=== PATIENT | female | born 1990 | race Caucasian/White ===

== ENCOUNTER 2016-09-08 09:43 | Emergency (ER) | payer OTHER ==
[~2016-09-08] VITALS: Ht 175.3 cm; Wt 66.4 kg
[~2016-09-08 09:43] MED LIST: DOCU-41 PO; IBUP-1827 PO; OXYC1TAB24 PO
[2016-09-08 09:56] VITALS: BP 114/69; PULSE 87; RESP 15; O2SAT 99
--- NOTE | 2016-09-08 10:08 | ED.REPORT ---
HPI-Rash / Abscess Date of Service Sep 08, 2016 ED Provider: Joaquín Loera MD 26 y/o female with no pertient hx presents to the ED complaining of left eyelid swelling that she woke up with 2 days ago. The pt was prescribed cephalexin and sulfamethoxazole at [facility] urgent care on the same day. Her sx have not improved despite being compliant with the medications. She reports itching around the eye and pain with palpation. She denies pain with eye movement. The pt also complains of a lump in her right armpit. She denies fever. She also denies being exposed to anyone who may have had MRSA. Nursing Notes Stated Complaint: LT EYE SWELLING Chief Complaint: Skin Rash/Abscess Nursing Notes Reviewed: Yes ([email or web address], [employer] not reconciled) Allergies: Coded Allergies: No Known Allergies (Verified Allergy, Unknown, 10/05/14) Scheduled Clindamycin (Clindamycin) 300 Mg Capsule 300 MG PO QID Docusate Sodium (Colace) 100 Mg Capsule 100 MG PO BID Lactobacillus Acidophilus (Probiotic) 1 Each Capsule 1 EACH PO DAILY Scheduled PRN Hydrocodone-Acetaminophen 5-325 mg (Hydrocodone-Acetaminophen 5-325 mg) 1 Each Tablet 1-2 TABLET PO TID PRN PRN For Pain Ibuprofen (Ibuprofen) 600 Mg Tablet 600 MG PO Q6H PRN PRN For Pain oxyCODONE-Acetaminophen 5-325 mg (oxyCODONE-Acetaminophen 5-325 mg) 1 Tab Tablet 1-2 TAB PO Q4H PRN PRN For Pain General Time Seen by MD: 10:06 Chief Complaint Tender/swollen area (left eyelid) Hx Obtained From: Patient Arrived By: Walk-in Onset Occurred: 2 days ago Symptom Duration: Since onset Location: : Head/face (left eye) Quality: Itching, Painful (sore) Severity: Current: Mild Severity: Maximum: Mild Recent Healthcare: Recent doctor visit Similar Sx Previous: No Past Medical History Past Medical History Past Surgical History Reports: Family History non-contributory Smoking History Former Smoker Social History Other Social History: Good social support Ambulatory Status Independent Review of Systems Reports: left eye swelling Reports: left eye itching and pain with palpation Denies: left eye pain with eye movement Reports: lump in right armpit Constitutional: Denies: Fever Complete sys rev & neg: except as marked. Physical Exam Initial Vital Signs Vital Signs (First) Date Time Temp Pulse Resp B/P Pulse Ox O2 Delivery O2 Flow Rate FiO2 09/08/16 09:56 37 87 15 114/69 99 Room Air Initial VS: Reviewed, Vital signs normal Head / Eyes: Atraumatic, Normocephalic Neck: Supple, Non-tender, Full range of motion Respiratory: Breath sounds normal, Clear to auscultation, No respiratory distress Cardiovascular: Regular rate & rhythm, Heart sounds normal, Intact distal pulses Abdomen / GI: Soft, Non-tender Extremities: Vascular intact, Neuro intact, No swelling, No tenderness Neurologic: Alert, Oriented, Nonfocal General/Constitutional: Awake, Alert, Not toxic appearing Skin: Atraumatic, Color NL, Warm, Dry Head / Eyes: Atraumatic, Normocephalic Eyelids: Positive: Ptosis L Swelling and erythema on the left eye. Marked erythema under the left eyebrow. No signs of preseptal abscess or tk orbital cellulitis. Upper Extremity / MS: Atraumatic, Full range of motion, No erythema, No deformity, Neurologic intact, Vascular intact Lump without erythema on the right axilla. Interpretation & Diagnostics Lab Results Interpretation Result Diagram: 09/08/16 1100 09/08/16 1100 Test 09/08/16 11:00 White Blood Count 11.4th/mm3 (3.8-10.1) Red Blood Count 4.50mil/mm3 (3.90-5.20) Hemoglobin 12.6g/dL (12.0-15.6) Hematocrit 38.1% (35.0-46.0) Mean Corpuscular Volume 84.7fL (81-100) Mean Corpuscular Hemoglobin 28.0pg (27.0-35.0) Mean Corpuscular Hemoglobin Concent 33.1% (32.0-37.0) Red Cell Distribution Width 14.1% (12.3-15.4) Platelet Count 361bil/L (150-400) Neutrophils (%) (Auto) 75.5% (40-74) Lymphocytes (%) (Auto) 17.2% (14-46) Monocytes (%) (Auto) 5.8% (4-12) Eosinophils (%) (Auto) 0.8% (0-5) Basophils (%) (Auto) 0.3% (0-3) Sodium Level 139mEq/L (134-144) Potassium Level 4.1mEq/L (3.5-5.2) Chloride Level 103mEq/L (97-108) Carbon Dioxide Level 21mmol/L (18-29) Blood Urea Nitrogen 11mg/dL (6-20) Creatinine 0.81mg/dL (0.57-1.00) Estimat Glomerular Filtration Rate 124mL/min (>59) Glucose Level 77mg/dL (60-99) Calcium Level 8.9mg/dL (8.5-10.1) Total Bilirubin 0.2mg/dL (0.0-1.2) Aspartate Amino Transf (AST/SGOT) 16U/L (0-50) Alanine Aminotransferase (ALT/SGPT) 9U/L (0-32) Alkaline Phosphatase 50U/L (25-150) Total Protein 7.2g/dL (6.4-8.4) Albumin 3.8g/dL (3.4-5.0) Human Chorionic Gonadotropin, Qual Negative (Negative) Procedures Incision & Drainage Abscess I & D Abscess: Attempted to aspirate the abscess with 16 gauge and got a little bit of material, so an incision was made. Sebaceous material vs pus materal, difficult to tell. Underlying inflammed lymph node. Time: 11:22 Procedure Performed by: ED physician Consent / Setup / Site Prep: Consent from patient, Time-out performed, Hand hygiene observed, Stand sterile technique, Standard surgical scrub, Sterile drapes applied Location of Abscess: Right axilla Skin Preparation Agent: Normal saline Local Anesthesia: Bupivacaine 0.5% (with epi) Incised Abscess with Scalpel: #11 Pus Drained: Small Irrigation: Yes Post-Procedure / Complications: Culture obtained, Dressing applied, No complications, Condition improved, Tolerated procedure well, Patient stable Re-Eval/Medical Decision Med Decision/Clinical Course This is a 26-year-old female presents with increasing swelling and pain particularly around the left eye, but also lump in the right axilla. She denies fevers or chills. She denies prior history of MRSA or skin infections, this developed a few days ago and she was seen at urgent care and started in Anaprox-it turns out that she initially said one antibiotic, the notes from urgent care indicates she started both cephalexin and trimethoprim sulfa, and she claims she has been compliant. She was told his symptoms are not improving after 2 days to come to the emergency department, they are not improving, her pain is worsened, and her swelling is somewhat worsened. No visual symptoms, or pain with movement of the eye. But on exam has a clear cellulitis mostly with swelling of around the left eyebrow, I cannot tell an clinical exam that might be of fluid collection but there is no tk fluctuance of immediate abscess. And an ultrasound was obtained and did not reveal discrete fluid collection the be amenable to incision and drainage. She had no other areas of overt cellulitis or clear infection, but has a lump in the right axilla that is not cellulitic, but is slightly fluctuant and might be a cyst versus abscess. Lymph node is also possible. An ultrasound there did reveal a small fluid collection, so this area was incised with a small amount of purulent versus sebaceous cyst material. An overt sebaceous cyst wall was not identified however. A culture was sent from that site. In the meantime since the patient is not responding 2 days of antibiotic's, the patient's evening dose of IV clindamycin and dexamethasone. We will switch over to clindamycin 4 times a day for 10 days, as added a probiotic, and severe and pain medicine. Once again the patient's advised throughout 36-48 hours Before expecting much improvement, but if there is worsening symptoms in the interim, or symptoms not responding it have been return to the emergency department again. Source of Hx: Old records Re-Evaluation/Progress #1: Time of Eval: 10:58 Re-Evaluation/Progress Note: Rechecked pt. Informed the pt of the need for an ultrasound of the eye and plan to drain the abscess in the right axilla. She understands and agrees. All questions answered. Re-Evaluation/Progress #2: Time of Eval: 12:12 Re-Evaluation/Progress Note: Rechecked pt. Discussed lab results, imaging results, diagnosis and plan to discharge. Pt understands and agrees with the plan. F/U instruction and RTER warning given. All questions addressed. Differential Diagnosis: Positive: Abscess, Cellulitis Counseled Regarding: Diagnosis, Lab results, Need for follow-up, When/why to return to ED Discharge & Departure Impression: Primary Impression: Facial cellulitis Additional Impression: Abscess of right axilla Disposition: Home Discharge Condition All VS Reviewed: Yes Condition: Stable Additional Instructions: 1. No abscess collection was appreciated on ultrasound of the swelling around the left eye. You do have a skin infection (cellulitis). 2. You did have some fluid in the right axilla, so it was incised. A culture has been sent that will take several days for results. You can call us at [phone] for results (we call you only if it requires a change in antibiotics) 3. Stop the antibiotics you were started on at the [facility] center and change to clindamycin 300mg four times a day. 4. I recommend taking a probiotic daily while on the antibiotic for an additional 2 weeks after finishing the antibiotics. 5. For pain continue ibuprofen 400-800mg three times a day for pain. 6. If needed for more severe pain take hydrocodone/APAP 5/325 1-2 tabs up to 3 times a day for pain. NOTE: This medication contains narcotic and causes drowsiness, no driving for at least 4-6 hours after taking. Use sparingly, and only if needed for more severe pain. 7. Intrinsics are expected to be improving within 36-48 hours of switching to this antibiotic. If you are not improving, or if you are having new or worsening symptoms, return again to the emergency department. 8. If you need a primary care physician, you can follow-up with Dr. Calle at [facility]. Referrals: Julio Hidalgo MD (PCP) Scribe Attestation Portions of this note were transcribed by Zaira You. I,, personally performed the history, physical exam and medical decision-making;I reviewed and confirmed the accuracy of the information in the transcribed note. Signed by Jacob Carmona. 09/08/16 copies to: Julio Hidalgo MD, Matthew F MD Sep 08, 2016 10:08 Zaira You Sep 08, 2016 10:19
[2016-09-08] MEDS ORDERED: HYDROmorphone 0.5 mg/0.5 mL iSecure Syringe IVPUSH PRN (10:25)
[2016-09-08] MEDS ORDERED: Ondansetron 2 mg/mL 2 mL Inj IVPUSH ONE (10:25)
[2016-09-08] MEDS ORDERED: Dexamethasone Inj 10 MG in 0.9% Sodium Chloride-Pha MIX 50 ML IV ONE (11:10)
[2016-09-08] MEDS ORDERED: Clindamycin Inj 900 MG in IV Premix 1 EACH IV ONE (11:10)
[2016-09-08 11:15] LABS: BASOPHILS % (AUTO) 0.3 % (0-3); EOSINOPHILS % (AUTO) 0.8 % (0-5); MONOCYTES % (AUTO) 5.8 % (4-12); Mean Corpuscular Volume 84.7 fL (81-100); NEUTROPHILS % (AUTO) 75.5 % (40-74); Platelet Count 361 bil/L (150-400)
[2016-09-08] MEDS ORDERED: LACT1CAP65 PO (12:10)
[2016-09-08] MEDS ORDERED: CLIN-78 PO (12:10)
[2016-09-08] MEDS ORDERED: HYDR-4003 PO (12:10)
[2016-09-08 12:54] VITALS: BP 128/65; PULSE 75; RESP 16; O2SAT 97
--- NOTE | 2016-09-08 16:58 | DRSVH ---
PROCEDURE: US EXTREMITY SONOGRAM LIMITED ([id number]) INDICATIONS: L eye, R axilla - ? FLUID/SWELLING TECHNIQUE: Real-time scanning was performed of the left eyelid and right axilla, with image document ation. COMPARISON: None. FINDINGS: Sonographic evaluation of the left eyelid demonstrates a 2.4 x 1.2 x 8.6 cm hypoechoic, irregular dina id appearing soft tissue focus with mild internal vascularity. Sonographic evaluation of the right axilla demonstrates a 1.2 x 1.1 x 0.5 cm soft tissue hypoechoic f ocus with mild internal vascularity. IMPRESSION: 1. No drainable fluid collection is visualized. The hypoechoic soft tissue foci visualized may repre sent a phlegmon. Recommend clinical correlation. Dictated by: Sarkis EVANS Interpreted: Kennedy Holden MD on 09/08/2016 at 16:13 Approved by: Kennedy Holden M.D. on 09/08/2016 at 16:55
== END 2016-09-08 13:01 | disposition home or self-care (01) ==
LOC: SED 09:43
DX: L03.211 Cellulitis of face (principal); L02.411 Cutaneous abscess of right axilla; Z87.891 Personal history of nicotine dependence
CPT/HCPCS: 10060; 36415; 76882; 80053; 84703; 85025; 87070; 87075; 87186; 87205; 96365; 96375; 99285; J1100; J1170; J1885; J2405; J3490

== ENCOUNTER 2016-09-10 13:34 | Emergency (ER) | payer OTHER ==
[~2016-09-10] VITALS: Ht 175.3 cm; Wt 65.9 kg
[~2016-09-10 13:34] MED LIST changes: +CLIN-78 PO; +HYDR-4003 PO; +LACT1CAP65 PO
[2016-09-10 13:53] VITALS: BP 105/65; PULSE 84; RESP 16; O2SAT 100
[2016-09-10 15:13] LABS: Mean Corpuscular Volume 86.3 fL (81-100)
[2016-09-10 15:14] LABS: BASOPHILS % (AUTO) 0.8 % (0-3); MONOCYTES % (AUTO) 8.5 % (4-12); Mean Corpuscular Hemoglobin 27.8 pg (27.0-35.0); NEUTROPHILS % (AUTO) 63.5 % (40-74); Platelet Count 404 bil/L (150-400)
[2016-09-10] MEDS ORDERED: Clindamycin Inj 900 MG in IV Premix 1 EACH IV ONE (16:55)
[2016-09-10 17:56] VITALS: BP 117/69; PULSE 74; RESP 16; O2SAT 99
--- NOTE | 2016-09-10 18:09 | ED.REPORT ---
HPI-Rash / Abscess Date of Service Sep 10, 2016 ED Provider: Ronn Segovia PA-C Melissa is an otherwise healthy 26-year-old female presented with the chief complaint of left eye swelling. The approximate 4 days ago. At that time she was seen at urgent care and prescribed Bactrim and Keflex. Swelling continued to advance and she was seen 2 days later here in this department. Treated with IV clindamycin and discharged with oral clindamycin. Ultrasound at that time revealed no drainable abscess. At presentation today she reports reduce swelling around her eye but a enlarging of the lump on her left eyebrow as well as pain and tenderness. Denies fever, shaking chills, abdominal pain, vomiting , changes in vision or pain with eye motion. Nursing Notes Stated Complaint: LEFT EYE SWELLING Chief Complaint: Eye Nursing Notes Reviewed: Yes Allergies: Coded Allergies: No Known Allergies (Verified Allergy, Unknown, 10/05/14) Scheduled Clindamycin (Clindamycin) 300 Mg Capsule 300 MG PO QID Docusate Sodium (Colace) 100 Mg Capsule 100 MG PO BID Lactobacillus Acidophilus (Probiotic) 1 Each Capsule 1 EACH PO DAILY Scheduled PRN Hydrocodone-Acetaminophen 5-325 mg (Hydrocodone-Acetaminophen 5-325 mg) 1 Each Tablet 1-2 TABLET PO TID PRN PRN For Pain Ibuprofen (Ibuprofen) 600 Mg Tablet 600 MG PO Q6H PRN PRN For Pain oxyCODONE-Acetaminophen 5-325 mg (oxyCODONE-Acetaminophen 5-325 mg) 1 Tab Tablet 1-2 TAB PO Q4H PRN PRN For Pain General Time Seen by MD: 15:40 Chief Complaint Tender/swollen area Past Medical History Past Medical History Past Surgical History Reports: Family History non-contributory Smoking History Former Smoker Social History Other Social History: Good social support Ambulatory Status Independent Review of Systems Negative unless stated otherwise in history of present illness Physical Exam General: Well appearing, well developed, well nourished, no acute distress. Head: Atraumatic, normocephalic. Eyes: No scleral icterus or injection. No discharge. Vision grossly intact. EOMI, PERRL. ENT: Voice clear, hearing grossly intact. Respiratory: Regular rate and rhythm. Breath sounds present, clear to auscultation and equal bilaterally. No respiratory distress. No increased work of breathing, speaks in complete sentences. Cardiovascular: Regular rate and rhythm, without murmur, gallop or rub. No pedal edema. Skin: Warm and dry. Moderate acne over the face as well as a 2 cm, nonfluctuant , raised, erythematous mass over the lateral left eyebrow with associated tenderness. Site of incision and drainage in the right axilla appears to be healing well. Neurological: Grossly nonfocal. Psychological: Alert and oriented. Speech appropriate, linear and logical. Behavior appropriate. Initial Vital Signs Vital Signs (First) Date Time Temp Pulse Resp B/P Pulse Ox O2 Delivery O2 Flow Rate FiO2 09/10/16 13:53 37.0 84 16 105/65 100 09/10/16 17:56 Room Air Normal Interpretation & Diagnostics Lab Results Interpretation Result Diagram: 09/10/16 1500 09/10/16 1500 Test 09/10/16 15:00 White Blood Count 10.5th/mm3 (3.8-10.1) Red Blood Count 4.54mil/mm3 (3.90-5.20) Hemoglobin 12.6g/dL (12.0-15.6) Hematocrit 39.2% (35.0-46.0) Mean Corpuscular Volume 86.3fL (81-100) Mean Corpuscular Hemoglobin 27.8pg (27.0-35.0) Mean Corpuscular Hemoglobin Concent 32.1% (32.0-37.0) Red Cell Distribution Width 14.4% (12.3-15.4) Platelet Count 404bil/L (150-400) Neutrophils (%) (Auto) 63.5% (40-74) Lymphocytes (%) (Auto) 23.0% (14-46) Monocytes (%) (Auto) 8.5% (4-12) Eosinophils (%) (Auto) 3.0% (0-5) Basophils (%) (Auto) 0.8% (0-3) Sodium Level 138mEq/L (134-144) Potassium Level 4.1mEq/L (3.5-5.2) Chloride Level 99mEq/L (97-108) Carbon Dioxide Level 25mmol/L (18-29) Blood Urea Nitrogen 12mg/dL (6-20) Creatinine 0.65mg/dL (0.57-1.00) Estimat Glomerular Filtration Rate 160mL/min (>59) Glucose Level 86mg/dL (60-99) Calcium Level 9.3mg/dL (8.5-10.1) Total Bilirubin 0.2mg/dL (0.0-1.2) Aspartate Amino Transf (AST/SGOT) 18U/L (0-50) Alanine Aminotransferase (ALT/SGPT) 11U/L (0-32) Alkaline Phosphatase 47U/L (25-150) Total Protein 6.9g/dL (6.4-8.4) Albumin 3.8g/dL (3.4-5.0) Lab Results Interpretation: Mild leukocytosis, thrombocytosis. Discharge & Departure Impression: Primary Impression: Facial cellulitis Disposition: Home Discharge Condition All VS Reviewed: Yes Condition: Stable Patient Instructions: Cellulitis (ED) Additional Instructions: Evaluation for left eye swelling and emergency department includes interview and physical examination, which are reassuring that this is not a dangerous infection. While the bump over your eye does appear to have grown, the swelling around her eye is reduced. We cannot detect any fluctuance that would be helped with incision and drainage, and after some discussion you have declined a repeated ultrasound. I do not believe this is unreasonable. We have given U another dose of IV clindamycin here in the emergency department. We recommended to continue taking your oral clindamycin as prescribed, which should cause this to improve shortly. If on Monday or Monday this is not noticeably improved, I suggest follow up with the [facility] residency clinic. I provided a referral below. If that is not possible you can be seen at either the urgent care or here in the emergency department. Return to the emergency department for any new or worsening symptoms including rapidly advancing redness, swelling, pain, fever, reduced vision or pain with eye motion. Referrals: [facility] Residency Clinic EDSupervising Provider for APC: Michele Kramer MD Attending Statement Discussed patient with DANYELLE Segovia. I evaluated the patient independently and agree with plan as above. In brief, 22 yo female with cellulitis left eyebrow and swelling. She has been treated on clindamycin. There is no fluctuance. There is no drainage. There is overlying erythema. She declined an ultrasound. Given no fluctuance, no US, discussed with patient who preferred IV antibiotics was given a dose of clindamycin with plans to follow up with primary doctor on Monday for reevaluation or return if any new or worsening symptoms prior. There is no evidence of orbital or periorbital involvement to suggest orbital or periorbital cellulitis. There is no evidence of sepsis. Ronn Segovia PA-C Sep 10, 2016 18:09 Michele Kramer MD Sep 10, 2016 18:39
[2016-09-10 18:15] VITALS: BP 117/69; PULSE 74; RESP 16; O2SAT 99
== END 2016-09-10 18:16 | disposition home or self-care (01) ==
LOC: SED 13:34
DX: L03.211 Cellulitis of face (principal); Z87.891 Personal history of nicotine dependence
CPT/HCPCS: 36415; 80053; 85025; 96365; 96375; 99284; J1885; J3490